=== PATIENT | female | born 1935 | race Caucasian/White ===

== ENCOUNTER → 2017-02-10 | Outpatient (CLI) | payer OTHER, BC ==
[~2017-02-10] MED LIST: ALBUTEROL INH INH; ALBUTEROL2.5 MG/0.1 INH; AZOPT OPHTH1 %/10 M1 GTT; BENTYL10 MG PO; BIOTIN10 MG PO; BIOTIN800 MCG PO; DIOVAN HCT 1601 EAC1 PO; DIOVAN HCT 3201 EACH PO; DIOVAN160 MG PO; DIOVAN320 MG PO; DULERA 100 MCG/13 GM INH; FISH OIL 1,001000 M2 PO; HYDROCHLOROTHIA25 M2 PO; HYDROXYZINE HCL25 M1 PO; LEVOTHROID125 MCG PO; LEVOTHYROXIN0.025 MG PO; LEVOTHYROXIN0.125 M1 PO; LUMIGAN2.5 M1 OPHTHALMIC; MULTIVITAMINS1 EAC7 PO; PRAVASTATIN SOD20 MG PO; SYSTANE 0.3-0.1 EACH OPHTHALMIC; TRAMADOL 50 MG50 MG PO; VITAMIN B COMP1 EAC7 PO; VITAMIN D-40400 UNIT PO
== END ==
LOC: RAD 01:41
DX: Z12.31 Encounter for screening mammogram for malignant neoplasm of breast (principal)

== ENCOUNTER → 2018-02-14 | Outpatient (CLI) | payer OTHER, BC | LOC: RAD 02-10 14:18 | DX: Z12.31 Encounter for screening mammogram for malignant neoplasm of breast (principal) ==

== ENCOUNTER → 2018-05-06 | Outpatient (CLI) | payer OTHER, BC | LOC: CAT 09:05 | DX: E27.9 Disorder of adrenal gland, unspecified (principal); R19.5 Other fecal abnormalities; Z90.49 Acquired absence of other specified parts of digestive tract; Z90.710 Acquired absence of both cervix and uterus ==